=== PATIENT | male | born 1975 | race Caucasian/White ===

== ENCOUNTER → 2019-12-14 09:56 | Outpatient (BNVA) | payer BC, SELFPAY | PROVIDERS: Visit Provider Internal Medicine | DX: E11.40 Type 2 diabetes mellitus with diabetic neuropathy, unspecified (principal); E11.65 Type 2 diabetes mellitus with hyperglycemia; E66.01 Morbid (severe) obesity due to excess calories; Z68.44 Body mass index [BMI] 60.0-69.9, adult; E78.2 Mixed hyperlipidemia; G47.39 Other sleep apnea; I10 Essential (primary) hypertension; R63.5 Abnormal weight gain | CPT/HCPCS: 99205 ==

== ENCOUNTER 2020-01-23 11:29 | Outpatient (CLI) | payer BC, SELFPAY ==
[2020-01-23 13:40] LABS: Estmated Average Glucose 220; Hemoglobin A1C 9.3 % (4.0-6.0)
[2020-01-23 13:42] LABS: Free T4 Free Thyroxine 0.97 ng/dL (0.82-1.77); Thyroid Stimulating Hormone 0.84 uIU/mL (0.27-4.20)
[2020-01-23 17:09] LABS: Creatinine Urine, Random 125 mg/dL (39-259); Microalbum Creatinine Ratio Ur 64 mg/dL (0-20); Microalbumin Random Urine 8 ug/dL (0-20)
== END 2020-01-23 11:30 | disposition home or self-care (01) ==
PROVIDERS: Visit Provider Internal Medicine
DX: E11.9 Type 2 diabetes mellitus without complications (principal); R63.5 Abnormal weight gain
CPT/HCPCS: 82044; 83036; 84439; 84443